=== PATIENT | male | born 1995 | race African-American/Black ===

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

== ENCOUNTER 2020-08-04 23:58 | Emergency (ER) | payer SELFPAY ==
[~2020-08-04] VITALS: Ht 167.7 cm; Wt 68.0 kg
[~2020-08-04 23:58] MED LIST: AMOX500C2 PO; PRED5TAB PO
[2020-08-05] MEDS ORDERED: HYDROcodone/APAP 5 MG/325 MG (LORTAB) TAB PO ONE ×2 (00:30→02:45)
--- NOTE | 2020-08-05 00:36 | ED Integumentary General ---
General Chief Complaint: Skin/Wound Problems Stated Complaint: CYST IN GROIN AREA Nursing Triage Note: AMBULATES TO ROOM #5 ACCOMPANIED BY S/O WOULD C/O ABSCESS TO R GROIN X2-3 DAYS. REPORTS TO HAVE TAKEN 10MG FLEXARIL PRIOR TO ARRIVAL. Source: patient Exam Limitations: no limitations (JOANNE ODEN MED STUDENT) History of Present Illness Date Seen by Provider: Aug 05, 2020 Time Seen by Provider: 12:26 Initial Comments Pt is a 24yo male with no PMH who presents to the ED complaining of a cyst in his R groin. States it has been there for 2-3 days and is causing a throbbing/stretching pain that makes it difficult to walk. He states this is the 5th or 6th time it has happened in the past 1.5 years. He reports being seen in [place] for the same issue in October of 2019 but would not let them drain it there. They gave him steroids and antibiotics and it resolved until 2-3 days ago. He states it has opened up on its own in the past and he was able to express yellow foul smelling drainage from it. It has not opened up yet this time. He also reports a dry cough for about 2 days, and feels feverish off and on but has not taken his temperature at home. Also notes some nausea, diarrhea and pressure in the area of the cyst with urination. Timing/Duration: week, getting worse Severity: mild Location: extremities (right groin) Associated Symptoms: fever (JOANNE ODEN MED STUDENT) Allergies and Home Medications Allergies Coded Allergies: lemon (Verified Allergy, Unknown, 08/05/20) Home Medications Amoxicillin 500 Mg Capsule, 500 MG PO TID Prescribed by: SAVANNAH VARMA on 05/12/16 1353 Prednisone 5 Mg Tablet, 40 MG PO DAILY Prescribed by: SAVANNAH VARMA on 05/12/16 1353 Sulfamethoxazole/Trimethoprim 1 Each Tablet, 1 EACH PO BID Prescribed by: JACKY SUN on 08/05/20 0224 Patient Home Medication List Home Medication List Reviewed: Yes (JACKY MONROY MD) Review of Systems Review of Systems Constitutional: chills, fever EENTM: no symptoms reported Respiratory: cough ("dry cough"); No short of breath Cardiovascular: No chest pain, No edema Gastrointestinal: No abdominal pain; diarrhea Genitourinary: No dysuria, No hematuria; other ("pressure with urination") Musculoskeletal: muscle pain (R groin area) Skin: lumps (R groin) Psychiatric/Neurological: No Symptoms Reported Endocrine: No Symptoms Reported Hematologic/Lymphatic: No Symptoms Reported (JOANNE ODEN MED STUDENT) Past Yivzmhf-Pwyeuo-Nadaoo Hx Patient Social History Alcohol Use: Denies Use Smoking Status: Former Smoker Type Used: Cigarettes 2nd Hand Smoke Exposure: No Recent Infectious Disease Expo: No Recent Hopitalizations: No (JOANNE ODEN MED STUDENT) Seasonal Allergies Seasonal Allergies: No (JOANNE ODEN MED STUDENT) Past Medical History Surgeries: No Respiratory: No Cardiac: No Neurological: No Reproductive Disorders: No Gastrointestinal: No Musculoskeletal: No Endocrine: No Cancer: No Psychosocial: No Integumentary: No Blood Disorders: No (JOANNE ODEN MED STUDENT) Physical Exam Vital Signs Vital Signs - First Documented 08/05/20 08/05/20 00:08 02:44 Temp 36.6 Pulse 92 Resp 18 B/P (MAP) 133/78 (96) Pulse Ox 97 O2 Delivery Room Air (JACKY MONROY MD) Vital Signs Capillary Refill : Less Than 3 Seconds (JOANNE ODEN MED STUDENT) General Appearance: WD/WN, no apparent distress HEENT: PERRL/EOMI Neck: full range of motion, supple Cardiovascular: regular rate, rhythm, no murmur Respiratory: lungs clear, no respiratory distress, no accessory muscle use Gastrointestinal: normal bowel sounds, non tender, soft Extremities: normal range of motion, no pedal edema, no calf tenderness, swelling (R groin with firm, swollen area) Skin Problem Location: other (R groin) Skin Problem Character: erythema, swelling, tenderness, warm (JOANNE ODEN MED STUDENT) Procedures/Interventions I&D : Blade Size: 11 Progress Skin was prepped with chlorhexidine wipes. Approximately 1 mL of lidocaine with epinephrine was injected into the surface skin over the abscess. A 1 cm incision was made over the most fluctuant region of the abscess. A large amount of foul-smelling purulent material was expressed from the incision. (JACKY MONROY MD) Progress/Results/Core Measures Results/Orders Lab Results Laboratory Tests Test 08/05/20 00:30 Range/Units Coronavirus 2019 (ADRYAN) Negative Negative (JACKY MONROY MD) My Orders Orders - JACKY MONROY MD Covid 19 Inhouse Test (08/05/20 00:28) Hydrocodone/Apap 5/325 Tablet (Lortab 5 (08/05/20 00:30) Ibuprofen Tablet (Motrin Tablet) (08/05/20 02:30) Sulfamethoxazole/Trimet Ds Tab (Bactrim (08/05/20 02:30) Wound Culture (08/05/20 02:21) Hydrocodone/Apap 5/325 Tablet (Lortab 5 (08/05/20 02:45) (JACKY MONROY MD) Medications Given in ED Current Medications Medications Dose Ordered Sig/Sunita Route Start Time Stop Time Status Last Admin Dose Admin Acetaminophen/ Hydrocodone Bitart 1 ea ONCE ONCE PO 08/05/20 00:30 08/05/20 00:32 DC 08/05/20 00:33 1 EA Acetaminophen/ Hydrocodone Bitart 1 ea ONCE ONCE PO 08/05/20 02:45 08/05/20 02:44 DC 08/05/20 02:43 1 EA Ibuprofen 600 mg ONCE ONCE PO 08/05/20 02:30 08/05/20 02:31 DC 08/05/20 02:28 600 MG Trimethoprim/ Sulfamethoxazole 1 ea ONCE ONCE PO 08/05/20 02:30 08/05/20 02:31 DC 08/05/20 02:28 1 EA (JACKY MONROY MD) Vital Signs/I&O 08/05/20 08/05/20 00:08 02:44 Temp 36.6 36.6 Pulse 92 79 Resp 18 17 B/P (MAP) 133/78 (96) 122/74 (96) Pulse Ox 97 98 O2 Delivery Room Air (JACKY MONROY MD) Blood Pressure Mean: 96 Progress Progress Note : Progress Note Bedside ultrasound was performed which demonstrated a significant amount of fluid collection to the abscess. Patient consented to incision and drainage. He was first tested for Covid since he had dry cough. Covid screen was negative. He was also pretreated with hydrocodone and again treated with hydrocodone and ibuprofen after the procedure. Culture was obtained. Treatment with Bactrim DS was also initiated. (JACKY MONROY MD) Departure Impression Primary Impression: Groin abscess Additional Impression: Encounter for incision and drainage procedure Disposition: 01 HOME, SELF-CARE Condition: Improved Departure-Patient Inst. Referrals: NO,LOCAL PHYSICIAN (PCP/Family) Primary Care Physician Patient Instructions: Abscess Incision and Drainage (DC) Add. Discharge Instructions: When you return home immediately shower and run warm water over the affected area for at least 10 minutes since you do not have a bathtub to soak in. Periodically gently scrub the area with the antibacterial soap while in the shower. Repeat this 3 or 4 times a day for the next couple of days to encourage the abscess to continue draining. You may also very gently express drainage from the abscess if there is more accumulation. Return to care if you have worsening of symptoms or develop new symptoms such as fever. Complete your antibiotic as prescribed. For pain you may take ibuprofen up to 600 mg every 6 hours. Add Tylenol (acetaminophen) up to 1000 mg every 6 hours for additional pain relief. Use gauze pads to cover the area while it is draining. All discharge instructions reviewed with patient and/or family. Voiced understanding. Scripts Sulfamethoxazole/Trimethoprim (Bactrim Ds Tablet) 1 Each Tablet 1 EACH PO BID, #10 TAB Prov: JACKY MONROY MD 08/05/20 Medical Student Attestation and Attending Note: I have personally interviewed and examined this patient along with Joanne Oden, MS 4. I have reviewed student documentation including history, physical, and assessments. I agree with the documentation except where otherwise noted. Exam: General: Alert, oriented, no acute distress, well developed HEENT: Normocephalic and atraumatic Heart: Regular rate and rhythm without murmur Lungs: Clear to auscultation bilaterally with normal effort Neuropsych: Alert, oriented, no focal deficits Skin: Warm and dry without rashes. Abscess on the right medial thigh beneath scrotum that is tender to palpation and fluctuant to touch. (JACKY MONROY MD) JOANNE ODEN,MED STUDENT Aug 05, 2020 00:36 JACKY MONORY MD Aug 05, 2020 02:29
[2020-08-05] MEDS ORDERED: SULF1TAB35 PO (02:24)
[2020-08-05] MEDS ORDERED: TRIM/SULFAMETH 160/800 (SEPTRA DS) TAB PO ONE (02:30)
[2020-08-05] MEDS ORDERED: IBUPROFEN TABLET 200 MG TAB PO ONE (02:30)
[2020-08-05 02:44] VITALS: BP 122/74
== END 2020-08-05 02:44 | disposition home or self-care (01) ==
LOC: EDUNIT# 23:58 → ER 08-05 00:03
DX: L02.214 Cutaneous abscess of groin (principal); Z20.822 Contact with and (suspected) exposure to COVID-19; Z87.891 Personal history of nicotine dependence; Z79.52 Long term (current) use of systemic steroids
CPT/HCPCS: 87070; 87077; 87205; 99283; U0002; 87635

== ENCOUNTER 2021-02-21 20:31 | Emergency (ER) | payer SELFPAY ==
[~2021-02-21] VITALS: Ht 167 cm; Wt 68.0 kg
[~2021-02-21 20:31] MED LIST changes: +SULF1TAB38 PO
[2021-02-21] MEDS ORDERED: RX-AMOXICILLIN 500 MG CAP #3 PPK PO STA (20:59)
[2021-02-21] MEDS ORDERED: IBUPROFEN 800 MG (MOTRIN) TAB PO STA (20:59)
[2021-02-21] MEDS ORDERED: AMOX500C2 PO (21:04)
--- NOTE | 2021-02-21 21:04 | ED EENT ---
History of Present Illness General Chief Complaint: Dental Problems/Pain Stated Complaint: DENTAL PAIN Nursing Triage Note: PT ARRIVES TO ER WITH C/O DENTAL PAIN FOR THE PAST FEW DAYS. PT SAID IT IS PAINFUL ON THE RIGHT TOP AND LOWER LEFT WITH THE LOWER LEFT HURTING WORSE AT 10/10 PAIN History of Present Illness Date Seen by Provider: Feb 21, 2021 Time Seen by Provider: 20:50 Initial Comments 25-year-old male presents for dental pain on the right upper and left lower molars. He has tried Excedrin and Tylenol with no improvement in his symptoms. He reports last seeing a dentist approximately 8 months ago. He did schedule an appointment but cannot be seen at the [facility] dental clinic until March 14. He denies difficulty eating or drinking. Timing/Duration: last week Severity: moderate Prearrival Treatment: over the counter meds Associated Symptoms: denies symptoms Allergies and Home Medications Allergies Coded Allergies: lemon (Verified Allergy, Unknown, 08/05/20) Patient Home Medication List Home Medication List Reviewed: Yes Amoxicillin (Amoxicillin) 500 Mg Capsule, 500 MG PO TID Prescribed by: SAVANNAH VARMA on 05/12/16 135 Amoxicillin (Amoxicillin) 500 Mg Capsule, 500 MG PO TID Prescribed by: ALANA PERDOMO on 02/21/212103 Prednisone (Prednisone) 5 Mg Tablet, 40 MG PO DAILY Prescribed by: SAVANNAH VARMA on 05/12/16 135 Sulfamethoxazole/Trimethoprim (Bactrim Ds Tablet) 1 Each Tablet, 1 EACH PO BID Prescribed by: JACKY SUN on 08/05/20 0224 Review of Systems Review of Systems Constitutional: no symptoms reported, see HPI Mouth: see HPI; denies loose teeth; pain, swelling; denies purulent discharge Throat: no symptoms reported, see HPI Respiratory: no symptoms reported, see HPI All Other Systems Reviewed Negative Unless Noted: Yes Past Xzzfhth-Yfjfpj-Adloqh Hx Patient Social History Tobacco Use?: No Use of E-Cig and/or Vaping dev: Yes E-Cig or Vaping type used: Nicotine Use of E-Cig and/or Vaping Raoul: Current Everyday User Substance use?: No Alcohol Use?: No Pt feels they are or have been: No Immunizations Up To Date Influenza Vaccine Up-to-Date: No; Not Current First/Initial COVID19 Vaccinat: DEC 2020 Second COVID19 Vaccination Po: JAN 2021 COVID19 Vaccine Office Electrician: MODERNA Seasonal Allergies Seasonal Allergies: No Past Medical History Surgeries: No Respiratory: No Cardiac: No Neurological: No Reproductive Disorders: No Gastrointestinal: No Musculoskeletal: No Endocrine: No Cancer: No Psychosocial: No Integumentary: No Blood Disorders: No Family Medical History Reviewed Nursing Family Hx Physical Exam Vital Signs Vital Signs - First Documented 02/21/21 20:43 Temp 36.9 Pulse 70 Resp 18 B/P (MAP) 115/70 (85) Pulse Ox 100 O2 Delivery Room Air Height, Weight, BMI Height: 5'6" Weight: 135lbs. oz. 61.001131sy; 24.00 BMI Method:Stated General Appearance: WD/WN, no apparent distress Ears: bilateral ear auricle normal, bilateral ear canal normal, bilateral ear TM normal Nose: normal inspection; No active bleeding, No discharge Mouth/Throat: pharynx normal, dental tenderness, mandibular swelling; No maxil earl swelling, No pharynx tenderness, No tonsillar exudate Neck: full range of motion, supple, normal inspection, lymphadenopathy (R), lymphadenopathy (L) Cardiovascular: normal peripheral pulses, regular rate, rhythm Respiratory: chest non-tender, lungs clear, normal breath sounds Neurologic/Psychiatric: no motor/sensory deficits, alert, normal mood/affect, oriented x 3 Skin: normal color, warm/dry Progress/Results/Core Measures Results/Orders My Orders Orders - ALANA PERDOMO Rx-Amoxicillin Capsule (Rx-Polymox Capsu (02/21/21 20:59) Ibuprofen Tablet (Motrin Tablet) (02/21/21 20:59) Vital Signs/I&O 02/21/21 02/21/21 20:43 21:33 Temp 36.9 36.9 Pulse 70 70 Resp 18 18 B/P (MAP) 115/70 (85) 115/70 Pulse Ox 100 100 O2 Delivery Room Air Room Air Blood Pressure Mean: 85 Departure Impression Primary Impression: Dental abscess Additional Impression: Pain, dental Disposition: 01 HOME, SELF-CARE Condition: Improved Departure-Patient Inst. Decision time for Depature: 20:55 Referrals: [facility] [place] NO,LOCAL PHYSICIAN (PCP) Primary Care Physician Patient Instructions: Dental Pain (DC), Tooth Abscess (DC) Add. Discharge Instructions: Take ibuprofen 600 mg alternating with Tylenol 650 mg every 4 hours for pain or swelling. Use warm water and salt to gargle and rinse in your mouth every 2 hours. You can use [id number]-[id number] dental pain ointments. Keep your scheduled appointment with the dentist, you can call to see about earlier appointments as available. Follow-up at [facility] if your symptoms are not improving or worsen. Take antibiotics as prescribed. Return to the emergency department for new, urgent healthcare needs. All discharge instructions reviewed with patient and/or family. Voiced understanding. Scripts Amoxicillin (Amoxicillin) 500 Mg Capsule 500 MG PO TID, #21 CAP 0 Refills Prov: ALANA PERDOMO 02/21/21 ALANA PERDOMO Feb 21, 2021 21:04
[2021-02-21 21:33] VITALS: BP 115/70
== END 2021-02-21 21:32 | disposition home or self-care (01) ==
LOC: EDUNIT# 20:31 → ER 20:32
DX: K04.7 Periapical abscess without sinus (principal); F17.200 Nicotine dependence, unspecified, uncomplicated; Z79.52 Long term (current) use of systemic steroids
CPT/HCPCS: 99283

== ENCOUNTER 2021-03-11 16:29 | Emergency (ER) | payer SELFPAY ==
[~2021-03-11] VITALS: Ht 167.7 cm; Wt 66.0 kg
[2021-03-11] MEDS ORDERED: ACHD5005 PO (17:26)
[2021-03-11] MEDS ORDERED: NAPR-1071 PO (17:26)
--- NOTE | 2021-03-11 17:28 | ED EENT ---
History of Present Illness General Chief Complaint: Dental Problems/Pain Stated Complaint: DENTAL PAIN/FEVER Nursing Triage Note: PT AMB TO FT 3 W REPORTS OF DENTAL ABCESSES ON THE TOP RIGHT AND BOTTOM LEFT SIDE OF MOUTH. PT REPORTS BOTH TEETH ARE GETTING PULLED ON SUNDAY BUT THE PAIN IS UNBEARABLE TODAY. PT CURRENTLY ON ANTIBIOTICS UNTIL SX. A&OX4. Source: patient Exam Limitations: no limitations (SAVANNAH VARMA APRN) History of Present Illness Date Seen by Provider: Mar 11, 2021 Time Seen by Provider: 17:22 Initial Comments To ER with reports of dental abscess to the upper right and lower left. He has a scheduled dental extraction next week with [facility]. He is currently on clindamycin for 3 days so far but is here tonight for worsening pain. Timing/Duration: this morning Severity: moderate Associated Symptoms: tooth pain (SAVANNAH VARMA APRN) Allergies and Home Medications Allergies Coded Allergies: lemon (Verified Allergy, Unknown, 08/05/20) Patient Home Medication List Home Medication List Reviewed: Yes (SAVANNAH VARMA APRN) Amoxicillin (Amoxicillin) 500 Mg Capsule, 500 MG PO TID Prescribed by: SAVANNAH VARMA on 05/12/16 1353 Amoxicillin (Amoxicillin) 500 Mg Capsule, 500 MG PO TID Prescribed by: ALANA PERDOMO on 02/21/21 210 Hydrocodone/Acetaminophen (Hydrocodone-Acetamin 5-325 mg) 1 Each Tablet, 1 TAB PO Q4H PRN for PAIN-MODERATE (5-7) Prescribed by: SAVANNAH VARMA on 03/11/21 1727 Naproxen (Naprosyn) 500 Mg Tablet, 500 MG PO BID PRN for PAIN-MODERATE (5-7) Prescribed by: SAVANNAH VARMA on 03/11/21 1726 Prednisone (Prednisone) 5 Mg Tablet, 40 MG PO DAILY Prescribed by: SAVANNAH VARMA on 05/12/16 1353 Sulfamethoxazole/Trimethoprim (Bactrim Ds Tablet) 1 Each Tablet, 1 EACH PO BID Prescribed by: JACKY SUN on 08/05/20 0224 Review of Systems Review of Systems Constitutional: see HPI Eyes: No Symptoms Reported Ears: No Symptoms Reported Nose: no symptoms reported Mouth: see HPI, pain, swelling Throat: no symptoms reported Respiratory: no symptoms reported Cardiovascular: no symptoms reported Musculoskeletal: no symptoms reported Skin: no symptoms reported Neurological: No Symptoms Reported Hematologic/Lymphatic: No Symptoms Reported Immunological/Allergic: no symptoms reported (SAVANNAH VARMA APRN) Past Bufqooo-Wprlld-Htatue Hx Patient Social History Tobacco Use?: Yes Tobacco type used: Cigarettes Smoking Status: Current Everyday Smoker Use of E-Cig and/or Vaping dev: No Substance use?: No Alcohol Use?: No (SAVANNAH VARMA APRN) Immunizations Up To Date First/Initial COVID19 Vaccinat: DEC 2020 Second COVID19 Vaccination Po: JAN 2021 COVID19 Vaccine Insurance Assistant: SALMA (SAVANNAH VARMA APRN) Seasonal Allergies Seasonal Allergies: No (SAVANNAH VARMA APRN) Past Medical History Surgeries: No Respiratory: No Cardiac: No Neurological: No Reproductive Disorders: No Gastrointestinal: No Musculoskeletal: No Endocrine: No Cancer: No Psychosocial: No Integumentary: No Blood Disorders: No (SAVANNAH VARMA APRN) Physical Exam Vital Signs Vital Signs - First Documented 03/11/21 16:49 Temp 36.8 Pulse 98 Resp 20 B/P (MAP) 150/100 (117) Pulse Ox 98 O2 Delivery Room Air (JACKY MONROY MD) Height, Weight, BMI Height: 5'6" Weight: 135lbs. oz. 61.398978pf; 23.00 BMI Method:Stated General Appearance: WD/WN Eyes: bilateral eye normal inspection, bilateral eye PERRL, bilateral eye EOMI Ears: bilateral ear auricle normal, bilateral ear canal normal, bilateral ear TM normal Mouth/Throat: No mandibular swelling, No maxillary swelling Neck: non-tender, full range of motion; No lymphadenopathy (R), No lymphadenopathy (L) Cardiovascular: regular rate, rhythm, no murmur Respiratory: normal breath sounds, no respiratory distress, no accessory muscle use Gastrointestinal: normal bowel sounds, non tender, soft Neurologic/Psychiatric: alert, normal mood/affect, oriented x 3 Skin: normal color, warm/dry (SAVANNAH VARMA APRN) Progress/Results/Core Measures Results/Orders Medications Given in ED Current Medications Medications Dose Ordered Sig/Sunita Route Start Time Stop Time Status Last Admin Dose Admin Acetaminophen/ Hydrocodone Bitart 1 ea ONCE ONCE PO 03/11/21 17:30 03/11/21 17:31 DC 03/11/21 17:43 1 EA Ibuprofen 800 mg ONCE ONCE PO 03/11/21 17:30 03/11/21 17:31 DC 03/11/21 17:43 800 MG (JACKY MONROY MD) Vital Signs/I&O 03/11/21 03/11/21 16:49 17:45 Temp 36.8 Pulse 98 80 Resp 20 20 B/P (MAP) 150/100 (117) 144/93 Pulse Ox 98 100 O2 Delivery Room Air Room Air (JACKY MONROY MD) Blood Pressure Mean: 117 Departure Impression Primary Impression: Dental abscess Disposition: HOME, SELF-CARE Condition: Stable Departure-Patient Inst. Decision time for Depature: 17:24 (SAVANNAH VARMA APRN) Referrals: NO,LOCAL PHYSICIAN (PCP/Family) Primary Care Physician Patient Instructions: Dental Pain ED Add. Discharge Instructions: 1. Return to ER for any concerns 2. Pain medication as directed. Follow-up with your dentist as scheduled. All discharge instructions reviewed with patient and/or family. Voiced understanding. Scripts Hydrocodone/Acetaminophen (Hydrocodone-Acetamin 5-325 mg) 1 Each Tablet 1 TAB PO Q4H PRN for PAIN-MODERATE (5-7), #14 TAB Prov: SAVANNAH VARMA APRN 03/11/21 Naproxen (Naprosyn) 500 Mg Tablet 500 MG PO BID PRN for PAIN-MODERATE (5-7), #30 TAB 0 Refills Prov: SAVANNAH VARMA APRN 03/11/21 ATTENDING PHYSICIAN NOTE: I was physically present as attending physician in the emergency department during the care of this patient, but I was not directly involved in the decision making or delivery of care for this patient. (JACKY MONROY MD) SAVANNAH VARMA APRN Mar 11, 2021 17:28 JACKY MONROY MD Mar 11, 2021 19:03
[2021-03-11] MEDS ORDERED: HYDROcodone/APAP 5 MG/325 MG (LORTAB) TAB PO ONE (17:30)
[2021-03-11] MEDS ORDERED: IBUPROFEN 800 MG (MOTRIN) TAB PO ONE (17:30)
[2021-03-11 17:45] VITALS: BP 144/93
== END 2021-03-11 17:45 | disposition home or self-care (01) ==
LOC: EDUNIT# 16:29 → ER 16:30
DX: K04.7 Periapical abscess without sinus (principal); F17.210 Nicotine dependence, cigarettes, uncomplicated; Z79.52 Long term (current) use of systemic steroids
CPT/HCPCS: 99283

== ENCOUNTER 2022-08-17 17:27 | Emergency (ER) | payer SELFPAY ==
[~2022-08-17] VITALS: Ht 167.7 cm; Wt 64.5 kg
[~2022-08-17 17:27] MED LIST changes: +ACHD5005 PO; +NAPR-1071 PO
[2022-08-17] MEDS ORDERED: HYDROcodone/APAP 5 MG/325 MG (LORTAB) TAB PO ONE (18:30)
--- NOTE | 2022-08-17 18:36 | ED GU-Male ---
General Chief Complaint: General Problems/Pain Stated Complaint: TESTICLE PAIN Nursing Triage Note: PT AMBULATE TO TRIAGE WITH C/O LEFT TESTICLE PAIN X2 DAYS. PT SENT FROM [facility]. PT REPORTS HE WAS PLAYING BASKETBALL X2 DAYS AGO AND LEFT TESTICLE STARTED HURTING THE NEXT DAY. Source: patient Exam Limitations: no limitations History of Present Illness Date Seen by Provider: Aug 17, 2022 Time Seen by Provider: 18:21 Initial Comments 26-year-old male presents to the ED from the [facility] walk-in clinic with complaints of left testicle pain which started yesterday at 4 PM. Denies any injury to the area. Reports he feels as though his left testicle is swollen. Denies any difficulty urinating, but does report pain when straining when he is towards the end of the stream. Denies any penile discharge. Denies any concerns for STDs. Reports feeling hot and cold. Denies chest pain, shortness of air, abdominal pain, nausea, vomiting. Denies any past medical history, does not take any medications. He was treated for chlamydia in September 2021. Allergies and Home Medications Allergies Coded Allergies: lemon (Verified Allergy, Unknown, 08/05/20) Patient Home Medication List Home Medication List Reviewed: Yes Amoxicillin (Amoxicillin) 500 Mg Capsule, 500 MG PO TID Prescribed by: SAVANNAH VARMA on 05/12/16 135 Amoxicillin (Amoxicillin) 500 Mg Capsule, 500 MG PO TID Prescribed by: ALANA PERDOMO on 02/21/212103 Doxycycline Hyclate (Doxycycline Hyclate) 100 Mg Capsule, 100 MG PO BID Prescribed by: Linda Trinidad on 08/17/222006 Hydrocodone/Acetaminophen (Hydrocodone-Acetamin 5-325 mg) 1 Each Tablet, 1 TAB PO Q4H PRN for PAIN-MODERATE (5-7) Prescribed by: SAVANNAH VARMA on 03/11/21 172 Naproxen (Naprosyn) 500 Mg Tablet, 500 MG PO BID PRN for PAIN-MODERATE (5-7) Prescribed by: SAVANNAH VARMA on 03/11/21 172 Prednisone (Prednisone) 5 Mg Tablet, 40 MG PO DAILY Prescribed by: SAVANNAH VARMA on 05/12/16 135 Sulfamethoxazole/Trimethoprim (Bactrim Ds Tablet) 1 Each Tablet, 1 EACH PO BID Prescribed by: JACKY SUN on 4/8/21 0224 Review of Systems Review of Systems Constitutional: see HPI Past Chuqhoc-Hxzhim-Jzcwtw Hx Patient Social History Tobacco Use?: No Smoking Status: Never a Smoker Smokeless Tobacco Frequency: Never a User Use of E-Cig and/or Vaping dev: No Use of E-Cig and/or Vaping Raoul: Never a User Substance use?: No Alcohol Use?: No Pt feels they are or have been: No Immunizations Up To Date First/Initial COVID19 Vaccinat: DEC 2020 Second COVID19 Vaccination Po: JAN 2021 Seasonal Allergies Seasonal Allergies: No Past Medical History Surgeries: No Respiratory: No Cardiac: No Neurological: No Reproductive Disorders: No Gastrointestinal: No Musculoskeletal: No Endocrine: No Cancer: No Psychosocial: No Integumentary: No Blood Disorders: No Physical Exam Vital Signs Vital Signs - First Documented 08/17/22 08/17/22 17:58 20:30 Temp 36.6 Pulse 90 Resp 19 B/P (MAP) 121/72 (88) Pulse Ox 98 O2 Delivery Room Air Capillary Refill : Less Than 3 Seconds Height, Weight, BMI Height: 5'6" Weight: 135lbs. oz. 61.264438rt; 22.00 BMI Method:Stated General Appearance: WD/WN, mild distress Neck: supple, normal inspection Cardiovascular: regular rate, rhythm, no edema, no gallop, no JVD, no murmur Respiratory: lungs clear, normal breath sounds, no respiratory distress, no accessory muscle use Male: testicular tenderness (Left), other (Left testicle feels more firm than right testicle, left testicle is not larger in size than right testicle) Extremities: normal range of motion, normal inspection Neurologic/Psychiatric: alert, normal mood/affect Skin: normal color, warm/dry Progress/Results/Core Measures Suspected Sepsis SIRS Temperature: Pulse: 90 Respiratory Rate: 19 Blood Pressure 121 /72 Mean: 88 Results/Orders Lab Results Laboratory Tests Test 08/17/22 18:35 Range/Units Urine Color YELLOW Urine Clarity CLOUDY Urine pH 7.0 5-9 Urine Specific Institute 1.025 H 1.016-1.022 Urine Protein TRACE H NEGATIVE Urine Glucose (UA) NEGATIVE NEGATIVE Urine Ketones NEGATIVE NEGATIVE Urine Nitrite NEGATIVE NEGATIVE Urine Bilirubin NEGATIVE NEGATIVE Urine Urobilinogen 1.0 < = 1.0 MG/DL Urine Leukocyte Esterase 3+ H NEGATIVE Urine RBC (Auto) 1+ H NEGATIVE Urine RBC 10-25 H /HPF Urine WBC 5-10 H /HPF Urine Squamous Epithelial Cells NONE /HPF Urine Crystals NONE /LPF Urine Bacteria TRACE /HPF Urine Casts NONE /LPF Urine Mucus MODERATE H /LPF Urine Culture Indicated YES Micro Results Microbiology 08/17/22 Urine Culture - Final, Complete NO GROWTH My Orders Orders - LINDA TRINIDAD INVESTMENT ACCOUNTANT Hydrocodone/Apap 5/325 Tablet (Lortab 5 (08/17/22 18:30) Us Scrotum (Testicle) [id number] (08/17/22 18:27) Ua Culture If Indicated (08/17/22 18:34) Chlamydia Trachomatis Urine (08/17/22 18:34) Neis Alli Dna Urine Test (08/17/22 18:34) Urine Culture (08/17/22 18:35) Ceftriaxone Inj (Rocephin Inj) (08/17/22 20:00) Lidocaine 1% Inj 20 Ml (Xylocaine 1% Inj (08/17/22 20:00) Doxycycline Hyclate Tablet (Vibramycin T (08/17/22 20:00) Medications Given in ED Vital Signs/I&O 08/17/22 08/17/22 08/17/22 17:58 18:31 20:30 Temp 36.6 36.6 Pulse 90 78 Resp 19 18 B/P (MAP) 121/72 (88) 124/76 Pulse Ox 98 O2 Delivery Room Air Room Air Capillary Refill : Less Than 3 Seconds Blood Pressure Mean: 88 Progress Note : Time: 18:48 Progress Note Patient seen and evaluated, resting in bed, mild distress. Based on exam and symptoms, concerned for testicular torsion. UA, gonorrhea urine, chlamydia urine, scrotal ultrasound, and pain medication ordered. 1950 Ultrasound reviewed. Ultrasound shows bilateral epididymitis with small hydroceles. UA reviewed. UA shows 3+ leukocytes, 1+ RBCs, 5-10 WBCs, moderate mucus, trace bacteria. This is likely due to gonorrhea or chlamydia. Will treat patient for STI and epididymitis. Results discussed with patient. Discharge instructions and return precautions provided. Diagnostic Imaging Diagonstic Imaging: Ultrasound Plain Films/CT/US/NM/MRI: other (Scrotum) Comments [facility] [place], [place] NAME: SILVIA SMART [facility] REC#: [id number] PT STATUS: REG ER : 1995 PHYSICIAN: LINDA TRINIDAD APRN ADMIT DATE: 08/17/22/ER Signed Date of Exam:08/17/22 US SCROTUM (Testicle) [id number] PROCEDURE: US Scrotum. TECHNIQUE: Multiple real-time grayscale images were obtained over the scrotum in various projections bilaterally. INDICATION: Scrotal pain and swelling The right testicle measures 3.8 x 2.3 x 2.8 cm. Left testicle measures 3.9 x 2.0 x 3.0 cm. The testes have normal echogenicity and blood flow. The right epididymis is hyperemic. The left epididymis is also hyperemic. There are small bilateral hydroceles. There is no varicocele. IMPRESSION: Bilateral epididymitis with small hydroceles. Dictated by: Dictated on workstation # [id number] Dict: 08/17/[id number] Trans: 08/17/221944 [facility] [id number] Interpreted by: LAVONNE MONTGOMERY MD Electronically signed by: LAVONNE MONTGOMERY MD 08/17/221944 Departure Impression Primary Impression: Acute epididymitis Disposition: 01 HOME, SELF-CARE Condition: Stable Departure-Patient Inst. Decision time for Depature: 20:02 Referrals: [facility] (PCP/Family) Primary Care Physician Patient Instructions: Epididymitis (DC) Add. Discharge Instructions: Complete full course of antibiotic, even if you begin to feel better. If your symptoms are not improving after 7 days of the antibiotic, you need to see your primary care provider. All your partners need to be tested and treated since this may be caused by a sexually transmitted infection. You may take Tylenol or ibuprofen [id number] as needed for pain. Return for severe pain, difficulty urinating, or any other new, concerning, or worsening symptoms. All discharge instructions reviewed with patient and/or family. Voiced understanding. Scripts Doxycycline Hyclate (Doxycycline Hyclate) 100 Mg Capsule 100 MG PO BID for 10 Days, #20 CAP 0 Refills Prov: LINDA TRINIDAD APRN 08/17/22 LINDA TRINIDAD APRN Aug 17, 2022 18:36
[2022-08-17 18:49] LABS: BILIRUBIN,URINE NEGATIVE (NEGATIVE); CLARITY,URINE CLOUDY; COLOR,URINE YELLOW; GLUCOSE, URINE (UA) NEGATIVE (NEGATIVE); KETONES,URINE NEGATIVE (NEGATIVE); LEUKOCYTE ESTERASE ,URINE 3+ (NEGATIVE); NITRITE,URINE NEGATIVE (NEGATIVE); PROTEIN,URINE TRACE (NEGATIVE)
[2022-08-17 19:04] LABS: BACTERIA,URINE TRACE /HPF
--- NOTE | 2022-08-17 19:29 | Diagnostic Imaging Report ---
PROCEDURE: US Scrotum. TECHNIQUE: Multiple real-time grayscale images were obtained over the scrotum in various projections bilaterally. INDICATION: Scrotal pain and swelling The right testicle measures 3.8 x 2.3 x 2.8 cm. Left testicle measures 3.9 x 2.0 x 3.0 cm. The testes have normal echogenicity and blood flow. The right epididymis is hyperemic. The left epididymis is also hyperemic. There are small bilateral hydroceles. There is no varicocele. IMPRESSION: Bilateral epididymitis with small hydroceles. Dictated by: Dictated on workstation # [id number]
[2022-08-17] MEDS ORDERED: cefTRIAXone 500 MG/5 ML ML IM ONE (20:00)
[2022-08-17] MEDS ORDERED: LIDOCAINE 1% INJ 20 ML VIAL INJ ONE (20:00)
[2022-08-17] MEDS ORDERED: DOXYCYCLINE 100 MG (VIBRAMYCIN) TABLET PO ONE (20:00)
[2022-08-17] MEDS ORDERED: DOXY100C5 PO (20:07)
[2022-08-17 20:30] VITALS: BP 124/76
== END 2022-08-17 20:30 | disposition home or self-care (01) ==
LOC: EDUNIT# 17:27 → ER 17:29
DX: N45.1 Epididymitis (principal); N43.3 Hydrocele, unspecified
CPT/HCPCS: 36415; 76870; 81000; 87088; 87491; 87591